=== PATIENT | female | born 1945 | race Caucasian/White ===

== ENCOUNTER 2025-02-05 22:28 | Inpatient (IN) ==
--- NOTE | 2025-02-05 22:48 | ED.PDOC ---
General [facility] ED Provider: Dr. SUSHANT VALENTIN MD Chief Complaint: Shortness of Air Stated Complaint: Patient is a 79-year-old female with past medical history of hypertension, hyperlipidemia, Alzheimer's dementia, pressure ulcers who presents with complaint of shortness of breath and low O2 saturations. As per the residential staff, they found patient to be short of breath and her saturations were in 50s on room air. They called the EMS and the EMS placed her in a reclined position from a flat position and started her on oxygen 6 L and her O2 saturations bumped up to 95% on 6 L after neb treatments before coming to the hospital. Patient is unable to provide any history. Patient as per the EMS has a temperature of 101 F. Patient was seen by the physician at the residential and was started on neb treatments. As per the residential no antibiotics were started. On arrival patient is saturating 96% on 6 L. Patient is alert and in mild respiratory distress. Time Seen by Provider: 02/05/25 22:30 Mode of Arrival: Ambulance Information Source: EMT Exam Limitations: Dementia Primary Care Provider: PREETI ARCE MD Nursing and Triage Documentation Reviewed and Agree: Yes Opioid Naive vs. Tolerant What is Opioid Naive?: *Opioid Naive implies the patient is not already taking opioids or not chronically receiving opioids on a daily basis. *PRN dosing is not "usually" associated with tolerance. *Patients are at higher risk of over-sedation and aspiration. What is Opioid Tolerant?: *Opioid Tolerance implies less than the expected response to an opioid. *Acquired tolerance is defined by the patient taking 60mg of oral morphine daily (or equianalgesic dose of another opioid) for 1 week or more. *Often associated with chronic pain. *May take more than usual dose to achieve desired pain control. Review of Systems Review Of Systems Constitutional: Reports Fever Eyes: Reports No symptoms Ears, Nose, Mouth, Throat: Reports Throat pain Respiratory: Reports Cough and Shortness of Breath Skin: Reports No symptoms Neurological: Reports Cognitive dysfunction All Other Systems: Other (All review of systems could not be obtained secondary to patient condition.) [facility] Medical History CAD (coronary artery disease) I25.10 - Atherosclerotic heart disease of [place] coronary artery without angina pectoris (ICD-10) Muscle weakness (generalized) M62.81 - Muscle weakness (generalized) (ICD-10) Family History (Updated 02/06/25 @ 03:26 by PANDA CHAUHAN) Other No known health problems Female Reproductive History Menstrual Hx Hysterectomy: No Hx Tubal Ligation: No Physical Exam Physical Exam Appearance: Reports Ill-appearing Ill-appearing: Moderate Pain Distress: None Eyes: Reports MOE, EOMI, Conjunctiva clear and Conjunctiva inflammed ENT: Reports Ears normal, Nose normal and Dry mucosa Neck: Supple Respiratory: Reports Breath sounds diminished, Rhonchi, Wheezes, Retractions and Other (Tachypnea, using accessory muscles of respiration.) Cardiovascular: Reports Tachycardia GI/: Reports Soft, Nontender and No masses Musculoskeletal: Reports Normal strength, ROM intact and No edema Skin: Reports Warm and Normal color Neurological: Reports Reflexes intact, Alert, Disoriented and Alert to verbal Critical Care Note Critical Care Note Total Critical Care Time (mins): 45 Course Course 02/06/25 05:05 02/06/25 05:05 Orders, Labs, Meds: Lab Review 02/05/25 02/05/25 02/05/25 02:00 22:40 22:47 WBC 13.68 H RBC 4.25 Hgb 12.2 Hct 41.2 MCV 96.9 MCH 28.7 MCHC 29.6 L RDW Coeff of [place] 12.3 Plt Count 304 Immature Gran % (Auto) 2.2 Neut % (Auto) 81.7 H Lymph % (Auto) 9.4 L [place] % (Auto) 6.3 Eos % (Auto) 0.1 Baso % (Auto) 0.3 Neut # (Auto) 11.2 H Lymph # (Auto) 1.3 [place] # (Auto) 0.9 Eos # (Auto) 0.0 Baso # (Auto) 0.0 Immature Gran # (Auto) 0.3 ESR 96 H PT 10.3 INR 0.99 Puncture Site Rr Base Excess 13.4 H O2 Saturation 96.1 ABG pH 7.54 H* ABG pCO2 42.0 ABG pO2 72.0 L ABG HCO3 35.9 H ABG Total CO2 37.2 H Pablo Test Pos Hemoglobin 1.2 Oxyhemoglobin 93.2 L Carboxyhemoglobin 2.7 H Total Hemoglobin 13.9 O2 Delivery Device Nc Oxygen Liter Flow 6.00 Sodium 145.4 H Potassium 4.36 Chloride 107.4 H Carbon Dioxide 35.5 H Anion Gap 6.86 BUN 29.5 H Creatinine 0.56 L Estimated GFR (MDRD) 105.00 BUN/Creatinine Ratio 52.67 Glucose 155.1 H Lactic Acid 1.22 Calcium 10.08 Magnesium 2.10 Total Bilirubin 0.81 AST 53.8 H ALT 44.3 H Alkaline Phosphatase 92.1 Troponin I 0.045 NT-Pro-B Natriuret Pep 966 H Total Protein 6.71 Albumin 3.41 L Globulin 3.30 Albumin/Globulin Ratio 1.03 Procalcitonin 0.14 H Urine Color Yellow Urine Clarity Clear Urine pH 5.5 Ur Specific [place] 1.025 Urine Protein 2+ H Urine Glucose (UA) Negative Urine Ketones Trace H Urine Blood Trace-intact H Urine Nitrite Positive H Urine Bilirubin Negative Urine Urobilinogen 0.2 Ur Leukocyte Esterase Negative Urine Microscopic RBC 0-2 Urine Microscopic WBC 2-5 Ur Squamous Epith Cells 0-2 Urine Bacteria 1+ Urine Mucus 1+ Urine Yeast Trace Adenovirus (PCR) B. pertussis DNA (PCR) B.parapertussis DNA PCR C. pneumoniae DNA (PCR) Coronavirus OC43 (PCR) Coronavirus HKU1 (PCR) Coronavirus 229E (PCR) Coronavirus NL63 (PCR) Human Metapneumovir PCR Influenza A (H1) PCR Influ A (H1N1/09) PCR Influenza A (H3) PCR Influenza Type A (PCR) Influenza B (RT-PCR) M. pneumoniae (PCR) Parainfluenza 1 (PCR) Parainfluenza 2 (PCR) Parainfluenza 3 (PCR) Parainfluenza 4 (PCR) RSV (PCR) Entero/Rhino (PCR) SARS-CoV-2 (PCR) 02/05/25 22:50 WBC RBC Hgb Hct MCV MCH MCHC RDW Coeff of [place] Plt Count Immature Gran % (Auto) Neut % (Auto) Lymph % (Auto) [place] % (Auto) Eos % (Auto) Baso % (Auto) Neut # (Auto) Lymph # (Auto) [place] # (Auto) Eos # (Auto) Baso # (Auto) Immature Gran # (Auto) ESR PT INR Puncture Site Base Excess O2 Saturation ABG pH ABG pCO2 ABG pO2 ABG HCO3 ABG Total CO2 Pablo Test Hemoglobin Oxyhemoglobin Carboxyhemoglobin Total Hemoglobin O2 Delivery Device Oxygen Liter Flow Sodium Potassium Chloride Carbon Dioxide Anion Gap BUN Creatinine Estimated GFR (MDRD) BUN/Creatinine Ratio Glucose Lactic Acid Calcium Magnesium Total Bilirubin AST ALT Alkaline Phosphatase Troponin I NT-Pro-B Natriuret Pep Total Protein Albumin Globulin Albumin/Globulin Ratio Procalcitonin Urine Color Urine Clarity Urine pH Ur Specific [place] Urine Protein Urine Glucose (UA) Urine Ketones Urine Blood Urine Nitrite Urine Bilirubin Urine Urobilinogen Ur Leukocyte Esterase Urine Microscopic RBC Urine Microscopic WBC Ur Squamous Epith Cells Urine Bacteria Urine Mucus Urine Yeast Adenovirus (PCR) Not detected B. pertussis DNA (PCR) Not detected B.parapertussis DNA PCR Not detected C. pneumoniae DNA (PCR) Not detected Coronavirus OC43 (PCR) Not detected Coronavirus HKU1 (PCR) Not detected Coronavirus 229E (PCR) Not detected Coronavirus NL63 (PCR) Not detected Human Metapneumovir PCR Not detected Influenza A (H1) PCR Not detected Influ A (H1N1/09) PCR Not detected Influenza A (H3) PCR Not detected Influenza Type A (PCR) Not detected Influenza B (RT-PCR) Not detected M. pneumoniae (PCR) Not detected Parainfluenza 1 (PCR) Not detected Parainfluenza 2 (PCR) Not detected Parainfluenza 3 (PCR) Not detected Parainfluenza 4 (PCR) Not detected RSV (PCR) Not detected Entero/Rhino (PCR) Detected H SARS-CoV-2 (PCR) Not detected Orders Category Date Time Status ADMIT PATIENT INPATIENT .TO [facility] (MONITORED BED) ADMISSION 02/05/25 23:34 Active ABG DRAW REQUEST Stat CARDIO 02/05/25 22:42 Completed ACTIVITY TID CARE 02/05/25 23:34 Active INTAKE & OUTPUT Q8HR CARE 02/05/25 23:34 Active TELEMETRY MONITORING TELE CARE 02/05/25 23:34 Active VITAL SIGNS Q8HR CARE 02/05/25 23:34 Active REGULAR DIET DIETARY 02/06/25 Breakfast Ordered ED APPLY O2 .ONCE EMERGENCY 02/05/25 23:26 Active ED CAR FERRY CAPTAIN APPLIED .ONCE EMERGENCY 02/05/25 23:26 Active ED IV/MEDIPORT/POWERPORT .ONCE EMERGENCY 02/05/25 23:26 Active ED VITAL SIGNS .ONCE EMERGENCY 02/05/25 23:26 Active ABG COOX Stat LAB 02/05/25 22:40 Completed BLOOD CULTURE (ED ONLY) Stat LAB 02/05/25 22:55 Received C-REACTIVE PROTEIN Stat LAB 02/05/25 22:47 Received CBC W/ AUTO DIFF DAILY@0600 LAB 02/06/25 05:05 Completed CBC W/ AUTO DIFF DAILY@0600 LAB 02/07/25 06:00 Ordered CBC W/ AUTO DIFF Stat LAB 02/05/25 22:47 Completed CMP [COMPREHENSIVE METABOLIC PANEL] Stat LAB 02/05/25 22:47 Completed COMPREHENSIVE METABOLIC PANEL DAILY@0600 LAB 02/06/25 05:05 Completed COMPREHENSIVE METABOLIC PANEL DAILY@0600 LAB 02/07/25 06:00 Ordered ESR Stat LAB 02/05/25 22:47 Completed LACTIC ACID Stat LAB 02/05/25 22:47 Completed MAGNESIUM Stat LAB 02/05/25 22:47 Completed PROBNP ED [NT-PROBNP(ED)] Stat LAB 02/05/25 22:47 Completed PROCALCITONIN DAILY@0600 LAB 02/06/25 05:05 Completed PROCALCITONIN Stat LAB 02/05/25 22:47 Completed PT WITH INR DAILY@0600 LAB 02/06/25 05:05 Completed PT WITH INR DAILY@0600 LAB 02/07/25 06:00 Ordered PT WITH INR Stat LAB 02/05/25 22:47 Completed RESPIRATORY PANEL 2.1 (PCR) Stat LAB 02/05/25 22:50 Completed TROPONIN I Stat LAB 02/05/25 22:47 Completed UA [URINALYSIS C & S IF INDICATED] Stat LAB 02/05/25 02:00 Completed Acetaminophen Meds 02/05/25 23:26 Discontinued 1,000 mg in 100 ml IV ONCE Piperacillin Sodium/Tazobactam [Zosyn 4.5 gm] 4.5 gm Meds 02/06/25 00:00 Discontinued 0.9 % Sodium Chloride [Sodium Chloride 100Ml] 100 ml IV Q6HR Piperacillin Sodium/Tazobactam [Zosyn 4.5 gm] 4.5 gm Meds 02/06/25 06:00 Active 0.9 % Sodium Chloride [Sodium Chloride 100Ml] 100 ml IV Q6HR Sodium Chloride 0.9% [Sodium Chloride] 1,000 ml Meds 02/05/25 23:26 Discontinued IV BOLUS CHEST, 1V AP ONLY Stat RADS 02/05/25 22:42 Completed Medications Generic Name Dose Route Start Last Admin Trade Name Freq PRN Reason Stop Dose Admin Piperacillin Sod/Tazobactam 100 mls @ 200 mls/hr 02/06/25 06:00 02/06/25 05:41 Sod 4.5 gm/ Sodium Chloride IV 02/09/25 05:59 200 mls/hr Q6HR EDWAR Administration Discontinued Medications Generic Name Dose Route Start Last Admin Trade Name Ephraim PRN Reason Stop Dose Admin Acetaminophen 1,000 mg in 100 mls @ 400 mls/hr 02/05/25 23:26 02/05/25 23:40 Acetaminophen IV 02/05/25 23:40 400 mls/hr ONCE ONE Administration Sodium Chloride 1,000 mls @ 1,000 mls/hr 02/05/25 23:26 02/06/25 00:39 Sodium Chloride IV 02/06/25 00:25 Infused BOLUS ONE Infusion Piperacillin Sod/Tazobactam 100 mls @ 200 mls/hr 02/06/25 00:00 02/05/25 23:59 Sod 4.5 gm/ Sodium Chloride IV 02/09/25 00:00 200 mls/hr Q6HR EDWAR Administration Vital Signs: Temp Pulse Resp BP Pulse Ox 02/05/25 23:16 101.2 F H 02/05/25 22:28 100.1 F 133 H 34 H 130/78 95 ER course: Patient is a 79-year-old female who presented from the residential with hypoxemia and dyspnea. On arrival patient was administered DuoNebs and her 6 L of oxygen was continued. Differential diagnosis include but not limited to flu, COVID, RSV, aspiration, pneumothorax, PE, pleural effusion, malignancy, sinusitis, GERD, CHF exacerbation, COPD exacerbation, asthma exacerbation. Chest x-ray shows patient has right-sided infiltrates. Blood cultures were sent. Patient was started on Zosyn. Discussed with SAMUEL Hare with the hospitalist group and the patient was admitted to Dr. Marquez. 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
[2025-02-05 22:53] LABS: ABG O2 HGB 93.2 % (95-100); ABG PCO2 42.0 mmHg (35-45); ABG PO2 72.0 mmHg (85-100); BEecf 13.4 (-2.0-3.0); HCO3 35.9 (21-28); TCO2 37.2 (19-24)
[2025-02-05 22:55] LABS: ABG PH 7.54 (7.35-7.45)
[2025-02-05 23:01] LABS: BORDETELLA PARAPERTUSSIS (PCR) NOT DETECTED (NOT DETECT); BORDETELLA PERTUSSIS (PCR) NOT DETECTED (NOT DETECT); CHLAMYDIA PNEUMONIAE (PCR) NOT DETECTED (NOT DETECT); CORONAVIRUS 229E (PCR) NOT DETECTED (NOT DETECT); CORONAVIRUS HKU1 (PCR) NOT DETECTED (NOT DETECT); CORONAVIRUS NL63 (PCR) NOT DETECTED (NOT DETECT); CORONAVIRUS OC43 (PCR) NOT DETECTED (NOT DETECT); HUMAN METAPNEUMOVIRUS (PCR) NOT DETECTED (NOT DETECT); INFLUENZA A H1 (PCR) NOT DETECTED (NOT DETECT); INFLUENZA A H1-2009 (PCR) NOT DETECTED (NOT DETECT); INFLUENZA A H3 (PCR) NOT DETECTED (NOT DETECT); INFLUENZA B (PCR) NOT DETECTED (NOT DETECT); MYCOPLASMA PNEUMONIAE (PCR) NOT DETECTED (NOT DETECT); PARAINFLUENZA VIRUS 1 (PCR) NOT DETECTED (NOT DETECT); PARAINFLUENZA VIRUS 2 (PCR) NOT DETECTED (NOT DETECT); PARAINFLUENZA VIRUS 3 (PCR) NOT DETECTED (NOT DETECT); PARAINFLUENZA VIRUS 4 (PCR) NOT DETECTED (NOT DETECT); RESPIRATORY SYNCYTIAL V (PCR) NOT DETECTED (NOT DETECT); SARS_COV_2 (PCR) NOT DETECTED (NOT DETECT)
[2025-02-05 23:06] LABS: IMMATURE GRANULOCYTE # (AUTO) 0.3 (0.0-1.0); IMMATURE GRANULOCYTE % (AUTO) 2.2 % (0.0-5.0); RDW COEFFICIENT OF VARIATION 12.3 % (11.6-14.8)
--- NOTE | 2025-02-05 23:08 | DI ---
EXAM: FRONTAL VIEW OF THE CHEST. HISTORY: Shortness of breath. COMPARISON: None. FINDINGS: Aortic calcifications. Normal heart size. Groundglass opacities in the right mid to lower lung. Small right pleural effusion. No visible pneumothorax. Right shoulder reverse total arthroplasty hardware. Osseous demineralization. IMPRESSION: Infiltrates in the right lung concerning for pneumonia. Small right pleural effusion.
[2025-02-05 23:17] LABS: CREATININE 0.56 mg/dL (0.60-1.30)
[2025-02-05] MEDS ORDERED: ZOSYN 3.375 GM 3.375 GM in SODIUM CHLORIDE 100ML 100 ML IV ONE (23:20)
[2025-02-05] MEDS: SODIUM CHLORIDE 1,000 ML IV ONE (23:39)
[2025-02-05] MEDS: ACETAMINOPHEN 1,000 MG/100 ML BAG IV ONE (23:40)
[2025-02-05 23:42] LABS: INR 0.99 SI (0.0-3.9)
[2025-02-05] MEDS: ZOSYN 4.5 GM 4.5 GM in SODIUM CHLORIDE 100ML 100 ML IV SCH (23:59)
[2025-02-06 00:21] LABS: ERYTHROCYTE SEDIMENTATION RATE 96 mm/hr (0-20)
[2025-02-06 00:54] LABS: ADENOVIRUS (PCR) NOT DETECTED (NOT DETECT); HUMAN RHINOVIRUS/ENTEROV (PCR) DETECTED (NOT DETECT)
[2025-02-06 02:05] LABS: GLUCOSE, URINE (UA) Negative (NEGATIVE); LEUKOCYTE ESTERASE ,URINE Negative (NEGATIVE); URINE, BLOOD Trace-intact (NEGATIVE)
[2025-02-06 02:15] LABS: SQUAMOUS EPITHELIAL CELL,UR 0-2 (0-5); URINE RBC, MICROSCOPIC 0-2 (0-2); YEAST,URINE TRACE (NOT PRESENT)
[2025-02-06 03:20] VITALS: BMI 18.6
[2025-02-06 05:39] LABS: IMMATURE GRANULOCYTE # (AUTO) 0.2 (0.0-1.0); IMMATURE GRANULOCYTE % (AUTO) 1.6 % (0.0-5.0); RDW COEFFICIENT OF VARIATION 12.1 % (11.6-14.8)
[2025-02-06] MEDS: ZOSYN 4.5 GM 4.5 GM in SODIUM CHLORIDE 100ML 100 ML IV SCH (05:41)
[2025-02-06 05:51] LABS: INR 1.03 SI (0.0-3.9)
[2025-02-06 06:00] LABS: CREATININE 0.66 mg/dL (0.60-1.30)
[2025-02-06] MEDS ORDERED: DUONEB NEB PRN (08:27)
[2025-02-06] MEDS ORDERED: ZOFRAN SDV IVP PRN (08:33)
[2025-02-06] MEDS ORDERED: LOVENOX SUBCUT SCH (09:00)
[2025-02-06] MEDS: ROCEPHIN 1 GM/50 ML D5W 1 GM/50 ML BAG IV SCH (09:34)
[2025-02-06] MEDS: DOXY-100 100 MG in SODIUM CHLORIDE 100ML 100 ML IV SCH (09:34)
[2025-02-06] MEDS: SOLU-MEDROL 40 MG IVP SCH (09:34)
[2025-02-06] MEDS ORDERED: ATIVAN IVP ONE (10:40)
[2025-02-06] MEDS: MAGNESIUM SULF 2 G/50 ML BAG 2 GM/50 ML PIGGYBACK IV STA (10:41)
[2025-02-06 11:07] LABS: ABG O2 HGB 92.5 % (95-100); ABG PCO2 59.0 mmHg (35-45); ABG PH 7.42 (7.35-7.45); ABG PO2 65.0 mmHg (85-100); BEecf 13.8 (-2.0-3.0); FI02 50.0 %; HCO3 38.3 (21-28); TCO2 40.1 (19-24)
--- NOTE | 2025-02-06 12:40 | CT ---
EXAMINATION: HEAD CT WITHOUT CONTRAST HISTORY: Altered mental status, abnormal breathing. TECHNIQUE: Noncontrast CT of the brain was performed with images acquired from skull base to vertex. 2-D coronal and sagittal reformatted images were obtained from the axial source images. Contrast Dose: None. CT Dose Reduction Techniques Performed: Yes. COMPARISON: None. FINDINGS: Topogram demonstrates no significant abnormality. Intraparenchymal hemorrhage: None. Parenchyma: Normal aguilar-white differentiation. No mass effect or midline shift. Cerebral atrophy and periventricular deep white matter hypodensities. Extra-axial spaces and basal cisterns: Normal. Ventricles: Normal size and morphology for age. Paranasal sinuses and mastoid air cells: Hypoplastic frontal sinuses. Mucoperiosteal thickening in the ethmoid sinuses bilaterally and right maxillary sinus. Minimal dependent air fluid level on the left maxillary sinus. Mastoid air cells are clear. Orbits: Normal visualized portions. Sella/Skull Base: Normal. Other: Scalp and visualized soft tissues are normal. Calvarium is normal. IMPRESSION: 1. No acute intracranial process. 2. Similar atrophy and deep white matter changes typical of chronic microvessel disease. 3. Bilateral ethmoid and maxillary sinusitis. All CT scans are performed using dose optimization techniques as appropriate to the performed exam and include at least one of the following: Automated exposure control, adjustment of the mA and/or kV according to size, and the use of iterative reconstruction technique.
[2025-02-06] MEDS: DUONEB NEB SCH (15:38)
--- NOTE | 2025-02-06 16:44 | PCM ---
Date of Service Date Seen by Provider: 02/06/25 Time Seen by Provider: 08:30 Admit Day/Time Admission Date: 02/05/25 Admission Time: 23:34 Reason for Admission Chief Complaint: FEVER, LOW O2 Hospital Provider Hospital Provider: MARSHAL ALLEN PA-C, [facility] [place] Primary Care Physician Primary Care Physician: PREETI ARCE MD History of Present Illness History of Present Illness: Patient is a 79-year-old [place] [facility] the [facility] with past medical history of dementia, hypertension, hyperlipidemia, agitation on Depakote, COPD who presents to the ER with low oxygen saturations in the 70s and shortness of breath. In the ER she was found to have pneumonia on chest x-ray and tested positive for rhinovirus. She was placed on 6 L which improved her oxygen saturation. Admitted to [facility]. This morning patient had a very abnormal breathing pattern, was holding her breath and then laboring to breathe. She was also noted to be extending her left leg during these breathing episodes. She is continue to require more oxygen, up to 10 L at this point. She has dementia and is unable to answer questions appropriately. Unsure of baseline. She continues to curl up into the position despite repositioning frequently. ABG and CT head ordered without any acute findings. Discussed with daughter who is POA that patient's breathing has worsened and oxygen requirement has gone up. Discussed concerns with her clinically. Will give her at least another 24 hours with current treatment plan to see if she improves. However daughter is agreeable that if she were to become very uncomfortable, difficult to keep saturations up etc. we will focus on comfort measures at that point. Patient's sister later presented during the day and frequently visits with patient at the prison. She states that she does often extend her left leg in this manner as she likes to "walk it up the wall" that is normally on the right side of her bed. Case Discussed With Case Discussed With: Patient's case was discussed with the ER Physicians, Dr. Senior. [facility] Medical History CAD (coronary artery disease) I25.10 - Atherosclerotic heart disease of [place] coronary artery without angina pectoris (ICD-10) Muscle weakness (generalized) M62.81 - Muscle weakness (generalized) (ICD-10) Family History Other No known health problems Allergies Allergies Allergy/AdvReac Type Severity Reaction Status Date / Time Benzodiazepines Allergy Unknown Unknown Verified 02/05/25 23:05 ciprofloxacin Allergy Unknown Unknown Verified 02/05/25 23:05 Current Medications Home Medications Acetaminophen (Acetaminophen 325 Mg Tablet) 650 mg PO Q4H PRN PRN Reason: Mild Pain Albuterol/Ipratropium (Ipratropium/Albuterol Vial.Neb) 3 ml NEB RTQ4H [facility] Last Admin: 02/06/25 17:10 Dose: 3 ml Enoxaparin Sodium (Enoxaparin Sodium 40 Mg/0.4 Ml Syr) 40 mg SUBCUT DAILY EDWAR CEFTRIAXONE/D5W 1 GM PREMIX (Rocephin 1 Gm/50 Ml D5w) 1 gm in 50 mls @ 100 mls/hr IV DAILY EDWAR Stop: 02/09/25 08:59 Last Admin: 02/06/25 09:34 Dose: 100 mls/hr Doxycycline Hyclate 100 mg/ (Sodium Chloride) 100 mls @ 50 mls/hr IV Q12HR EDWAR Stop: 02/09/25 08:59 Last Admin: 02/06/25 09:34 Dose: 50 mls/hr Methylprednisolone Sodium Succinate (Methylprednisolone Sod Succ/Pf 40 Mg/Ml Vial) 40 mg IVP Q8HR [facility] Last Admin: 02/06/25 14:52 Dose: 40 mg Ondansetron HCl (Ondansetron Hcl/Pf 4 Mg/2 Ml Sdv) 4 mg IVP Q6H PRN PRN Reason: Nausea / Vomiting albuterol sulfate 90 mcg/actuation breath activated powder inhaler 2 inh inhalation Q4-6H PRN shortness of breath 02/05/25 [History Confirmed 02/05/25] aspirin 81 mg capsule 81 mg PO DAILY 02/05/25 [History Confirmed 02/06/25] cyanocobalamin (vitamin B-12) 1,000 mcg capsule 1,000 mcg PO DAILY 02/05/25 [History Confirmed 02/06/25] divalproex 125 mg capsule,delayed release sprinkle 125 mg PO 3XD 02/05/25 [History Confirmed 02/06/25] duloxetine 30 mg capsule,delayed release sprinkle (Drizalma Sprinkle) 60 mg PO ONCE 02/05/25 [History Confirmed 02/06/25] gabapentin 300 mg capsule 300 mg PO BID 02/05/25 [History Confirmed 02/06/25] losartan 50 mg tablet 50 mg PO 2XD 02/05/25 [History Confirmed 02/06/25] mirtazapine 15 mg tablet 15 mg PO BEDTIME 02/05/25 [History Confirmed 02/06/25] olanzapine 5 mg disintegrating tablet 5 mg PO BID 02/05/25 [History Confirmed 02/06/25] trazodone 50 mg tablet 50 mg PO BEDTIME 02/05/25 [History Confirmed 02/06/25] acetaminophen 650 mg tablet,extended release (8HR Muscle Aches-Pain) 650 mg PO Q8H PRN fever or pain 02/06/25 [History Confirmed 02/06/25] cetirizine 10 mg capsule (All Day Allergy (cetirizine)) 10 mg PO DAILY PRN allergy symptoms 02/06/25 [History Confirmed 02/06/25] diclofenac sodium 1 % topical gel (Aspercreme Arthritis Pain) 4 g topical QID 02/06/25 [History Confirmed 02/06/25] Opioid Naive vs. Tolerant Does Patient Take Opioids?: No Is Patient Opioid Naive?: Yes What is Opioid Naive?: *Opioid Naive implies the patient is not already taking opioids or not chronically receiving opioids on a daily basis. *PRN dosing is not "usually" associated with tolerance. *Patients are at higher risk of over-sedation and aspiration. Is Patient Opioid Tolerant?: No What is Opioid Tolerant?: *Opioid Tolerance implies less than the expected response to an opioid. *Acquired tolerance is defined by the patient taking 60mg of oral morphine daily (or equianalgesic dose of another opioid) for 1 week or more. *Often associated with chronic pain. *May take more than usual dose to achieve desired pain control. Review of Systems Constitutional: Reports Fever, Fatigue and Weakness Head: Reports Normocephalic and Atraumatic Cardiovascular: Denies Chest pain Respiratory: Reports Cough and Shortness of air Physical examination Most Recent Vital Signs: Most Recent Vital Signs Temperature 96.7 F L 02/06/25 05:51 Temperature Source Tympanic 02/06/25 05:51 Temperature Source Rectal 02/05/25 23:16 Pulse Rate 79 11/24/25 05:51 Respiratory Rate 16 02/06/25 05:51 Blood Pressure 113/90 02/06/25 05:51 Blood Pressure Mean 97 02/06/25 05:51 Blood Pressure Left Arm 114/72 02/06/25 01:22 Blood Pressure Location Right Arm 02/06/25 05:51 Blood Pressure Position Supine 02/06/25 05:51 O2 Sat by Pulse Oximetry 93 L 02/06/25 09:55 Oxygen Delivery Method Venturi Mask 02/06/25 14:00 Oxygen Flow Rate 10 02/06/25 14:00 Fraction of Inspired Oxygen (FIO2) 50 02/06/25 14:00 Height 5 ft 6 in 02/06/25 01:22 Weight 52.5 kg 02/06/25 01:22 Telemetry Type Remote Telemetry 02/06/25 13:00 Telemetry Monitoring Continues 02/06/25 13:00 Telemetry Heart Rate 104 H 02/06/25 13:00 Telemetry SPO2 90 L 02/06/25 13:00 EKG UT Interval 0.12 02/06/25 13:00 EKG QRS Interval 0.06 02/06/25 13:[address] 02/06/25 13:00 Appearance: Positive Ill-Appearing, Thin and Other (moderately distressed, confused ) Skin: Positive [place], Warm and Good Turgor HEENT: Positive Normocephalic and Atraumatic Neck: Positive Supple and Midline Trachea Chest/Lungs: Positive Other (+diminished bilaterally, rhonchi noted, mild wheezing, significant amount of snot noted, +labored breathing ) Heart: Positive Tachycardia GI/: Positive Soft, Nontender, Bowel Sounds Normal and No Distention Extremities: Negative Edema Neurological: Positive Other (unable to fully assess, generally weak, moves all extremities but left leg continues to be in extension ) Psychiatric: Negative Oriented x4, Appropriate Mood or Appropriate Affect Labs This Visit Labs This Visit: Labs This Visit 02/05/25 02/05/25 02/05/25 02:00 22:40 22:47 WBC 13.68 H RBC 4.25 Hgb 12.2 Hct 41.2 MCV 96.9 MCH 28.7 MCHC 29.6 L RDW Coeff of [place] 12.3 Plt Count 304 Immature Gran % (Auto) 2.2 Neut % (Auto) 81.7 H Lymph % (Auto) 9.4 L [place] % (Auto) 6.3 Eos % (Auto) 0.1 Baso % (Auto) 0.3 Neut # (Auto) 11.2 H Lymph # (Auto) 1.3 [place] # (Auto) 0.9 Eos # (Auto) 0.0 Baso # (Auto) 0.0 Immature Gran # (Auto) 0.3 ESR 96 H PT 10.3 INR 0.99 Puncture Site Rr Base Excess 13.4 H O2 Saturation 96.1 ABG pH 7.54 H* ABG pCO2 42.0 ABG pO2 72.0 L ABG HCO3 35.9 H ABG Total CO2 37.2 H Pablo Test Pos Hemoglobin 1.2 Oxyhemoglobin 93.2 L Carboxyhemoglobin 2.7 H Total Hemoglobin 13.9 O2 Delivery Device Nc Oxygen Liter Flow 6.00 FiO2 % Sodium 145.4 H Potassium 4.36 Chloride 107.4 H Carbon Dioxide 35.5 H Anion Gap 6.86 BUN 29.5 H Creatinine 0.56 L Estimated GFR (MDRD) 105.00 BUN/Creatinine Ratio 52.67 Glucose 155.1 H Lactic Acid 1.22 Calcium 10.08 Magnesium 2.10 Total Bilirubin 0.81 AST 53.8 H ALT 44.3 H Alkaline Phosphatase 92.1 Troponin I 0.045 NT-Pro-B Natriuret Pep 966 H Total Protein 6.71 Albumin 3.41 L Globulin 3.30 Albumin/Globulin Ratio 1.03 Procalcitonin 0.14 H Urine Color Yellow Urine Clarity Clear Urine pH 5.5 Ur Specific [place] 1.025 Urine Protein 2+ H Urine Glucose (UA) Negative Urine Ketones Trace H Urine Blood Trace-intact H Urine Nitrite Positive H Urine Bilirubin Negative Urine Urobilinogen 0.2 Ur Leukocyte Esterase Negative Urine Microscopic RBC 0-2 Urine Microscopic WBC 2-5 Ur Squamous Epith Cells 0-2 Urine Bacteria 1+ Urine Mucus 1+ Urine Yeast Trace Adenovirus (PCR) B. pertussis DNA (PCR) B.parapertussis DNA PCR C. pneumoniae DNA (PCR) Coronavirus OC43 (PCR) Coronavirus HKU1 (PCR) Coronavirus 229E (PCR) Coronavirus NL63 (PCR) Human Metapneumovir PCR Influenza A (H1) PCR Influ A (H1N1/09) PCR Influenza A (H3) PCR Influenza Type A (PCR) Influenza B (RT-PCR) M. pneumoniae (PCR) Parainfluenza 1 (PCR) Parainfluenza 2 (PCR) Parainfluenza 3 (PCR) Parainfluenza 4 (PCR) RSV (PCR) Entero/Rhino (PCR) SARS-CoV-2 (PCR) 02/05/25 02/06/25 02/06/25 22:50 05:05 10:56 WBC 10.67 H RBC 3.61 L Hgb 10.4 L Hct 35.6 L MCV 98.6 MCH 28.8 MCHC 29.2 L RDW Coeff of [place] 12.1 Plt Count 262 Immature Gran % (Auto) 1.6 Neut % (Auto) 77.8 H Lymph % (Auto) 11.8 [place] % (Auto) 8.5 Eos % (Auto) 0.0 Baso % (Auto) 0.3 Neut # (Auto) 8.3 H Lymph # (Auto) 1.3 [place] # (Auto) 0.9 Eos # (Auto) 0.0 Baso # (Auto) 0.0 Immature Gran # (Auto) 0.2 ESR PT 10.7 INR 1.03 Puncture Site Rbrach Base Excess 13.8 H O2 Saturation 92.8 L ABG pH 7.42 ABG pCO2 59.0 H ABG pO2 65.0 L ABG HCO3 38.3 H ABG Total CO2 40.1 H Pablo Test Hemoglobin 1.1 Oxyhemoglobin 92.5 L Carboxyhemoglobin 2.4 H Total Hemoglobin 11.7 O2 Delivery Device Venti mask Oxygen Liter Flow 10.00 FiO2 % 50.0 Sodium 146.0 H Potassium 3.91 Chloride 109.5 H Carbon Dioxide 33.9 H Anion Gap 6.51 BUN 28.1 H Creatinine 0.66 Estimated GFR (MDRD) 87.00 BUN/Creatinine Ratio 42.57 Glucose 136.0 H Lactic Acid Calcium 9.02 Magnesium Total Bilirubin 0.43 AST 32.1 ALT 33.3 Alkaline Phosphatase 71.3 Troponin I NT-Pro-B Natriuret Pep Total Protein 5.56 L Albumin 2.82 L Globulin 2.74 Albumin/Globulin Ratio 1.02 Procalcitonin 0.10 H Urine Color Urine Clarity Urine pH Ur Specific [place] Urine Protein Urine Glucose (UA) Urine Ketones Urine Blood Urine Nitrite Urine Bilirubin Urine Urobilinogen Ur Leukocyte Esterase Urine Microscopic RBC Urine Microscopic WBC Ur Squamous Epith Cells Urine Bacteria Urine Mucus Urine Yeast Adenovirus (PCR) Not detected B. pertussis DNA (PCR) Not detected B.parapertussis DNA PCR Not detected C. pneumoniae DNA (PCR) Not detected Coronavirus OC43 (PCR) Not detected Coronavirus HKU1 (PCR) Not detected Coronavirus 229E (PCR) Not detected Coronavirus NL63 (PCR) Not detected Human Metapneumovir PCR Not detected Influenza A (H1) PCR Not detected Influ A (H1N1/09) PCR Not detected Influenza A (H3) PCR Not detected Influenza Type A (PCR) Not detected Influenza B (RT-PCR) Not detected M. pneumoniae (PCR) Not detected Parainfluenza 1 (PCR) Not detected Parainfluenza 2 (PCR) Not detected Parainfluenza 3 (PCR) Not detected Parainfluenza 4 (PCR) Not detected RSV (PCR) Not detected Entero/Rhino (PCR) Detected H SARS-CoV-2 (PCR) Not detected 02/06/25 11:04 WBC RBC Hgb Hct MCV MCH MCHC RDW Coeff of [place] Plt Count Immature Gran % (Auto) Neut % (Auto) Lymph % (Auto) [place] % (Auto) Eos % (Auto) Baso % (Auto) Neut # (Auto) Lymph # (Auto) [place] # (Auto) Eos # (Auto) Baso # (Auto) Immature Gran # (Auto) ESR PT INR Puncture Site Base Excess O2 Saturation ABG pH ABG pCO2 ABG pO2 ABG HCO3 ABG Total CO2 [place] Test Hemoglobin Oxyhemoglobin Carboxyhemoglobin Total Hemoglobin O2 Delivery Device Oxygen Liter Flow FiO2 % Sodium Potassium Chloride Carbon Dioxide Anion Gap BUN Creatinine Estimated GFR (MDRD) BUN/Creatinine Ratio Glucose Lactic Acid 0.78 D Calcium Magnesium Total Bilirubin AST ALT Alkaline Phosphatase Troponin I NT-Pro-B Natriuret Pep Total Protein Albumin Globulin Albumin/Globulin Ratio Procalcitonin Urine Color Urine Clarity Urine pH Ur Specific [place] Urine Protein Urine Glucose (UA) Urine Ketones Urine Blood Urine Nitrite Urine Bilirubin Urine Urobilinogen Ur Leukocyte Esterase Urine Microscopic RBC Urine Microscopic WBC Ur Squamous Epith Cells Urine Bacteria Urine Mucus Urine Yeast Adenovirus (PCR) B. pertussis DNA (PCR) B.parapertussis DNA PCR C. pneumoniae DNA (PCR) Coronavirus OC43 (PCR) Coronavirus HKU1 (PCR) Coronavirus 229E (PCR) Coronavirus NL63 (PCR) Human Metapneumovir PCR Influenza A (H1) PCR Influ A (H1N1/09) PCR Influenza A (H3) PCR Influenza Type A (PCR) Influenza B (RT-PCR) M. pneumoniae (PCR) Parainfluenza 1 (PCR) Parainfluenza 2 (PCR) Parainfluenza 3 (PCR) Parainfluenza 4 (PCR) RSV (PCR) Entero/Rhino (PCR) SARS-CoV-2 (PCR) Imaging Imaging: EXAMINATION: HEAD CT WITHOUT CONTRAST HISTORY: Altered mental status, abnormal breathing. TECHNIQUE: Noncontrast CT of the brain was performed with images acquired from skull base to vertex. 2-D coronal and sagittal reformatted images were obtained from the axial source images. Contrast Dose: None. CT Dose Reduction Techniques Performed: Yes. COMPARISON: None. FINDINGS: Topogram demonstrates no significant abnormality. Intraparenchymal hemorrhage: None. Parenchyma: Normal aguilar-white differentiation. No mass effect or midline shift. Cerebral atrophy and periventricular deep white matter hypodensities. Extra-axial spaces and basal cisterns: Normal. Ventricles: Normal size and morphology for age. Paranasal sinuses and mastoid air cells: Hypoplastic frontal sinuses. Mucoperiosteal thickening in the ethmoid sinuses bilaterally and right maxillary sinus. Minimal dependent air fluid level on the left maxillary sinus. Mastoid air cells are clear. Orbits: Normal visualized portions. Sella/Skull Base: Normal. Other: Scalp and visualized soft tissues are normal. Calvarium is normal. IMPRESSION: 1. No acute intracranial process. 2. Similar atrophy and deep white matter changes typical of chronic microvessel disease. 3. Bilateral ethmoid and maxillary sinusitis. EXAM: FRONTAL VIEW OF THE CHEST. HISTORY: Shortness of breath. COMPARISON: None. FINDINGS: Aortic calcifications. Normal heart size. Groundglass opacities in the right mid to lower lung. Small right pleural effusion. No visible pneumothorax. Right shoulder reverse total arthroplasty hardware. Osseous demineralization. IMPRESSION: Infiltrates in the right lung concerning for pneumonia. Small right pleural effusion. Review Statement Review Statement: I have independently reviewed and interpreted the labs/EKGs/imaging that were ordered by the ER provider. I have reviewed all outside records that are available currently in our EMR including imaging/notes/labs from previous visits. Plan Plan: 1. Acute hypoxic respiratory failure in setting of CAP due to rhinovirus - abx/steroids/breathing treatments, O2, isolation precautions 2. CAP due to rhinovirus - Plan as above 3. Abnormal breathing pattern and abnormal posturing - CT head neg, ABG overall unremarkable except mild CO2 retention. 4. Acute metabolic encephalopathy in setting of CAP - NPO for now, accuchecks q6hrs while npo, ST consult tomorrow morning, will start home meds when safe to swallow 5. Hypertension - Will restart when able 6. Dementia with agitation - Will restart meds when able DVT Prophylaxis: Lovenox Time Spent: Greater than 80 minutes spent with patient, 50% of the time spent with this patient was devoted to counseling and coordination of care. [facility] minutes spent discussing advance care planning. DNR Disposition: Will require >2 midnights Admit to: Inpatient Discussed Plan of Care with Dr. Fidelia Marquez. Discussed with daughter/POA concern regarding patient's condition, O2 requirements, labored breathing etc. Plan to give patient another 24 hours to see if she shows any improvement. If she were to become very uncomfortable, unable to keep O2 saturations up, etc, will consider switching to comfort focused care. Reevaluation this evening, patient does appear to be more comfortable and less labored. Medications Medication Orders: Medications Ordered Category Date Time Status Acetaminophen [Tylenol] Meds 02/06/25 08:33 Active 650 mg PO Q4H PRN Ceftriaxone/D5w 1 gm Premix [Rocephin 1 gm/50 ml D5w] Meds 02/06/25 09:00 A ctive 1 gm in 50 ml IV DAILY Doxycycline Hyclate Inj [Doxy-100] 100 mg Meds 02/06/25 09:00 Active 0.9 % Sodium Chloride [Sodium Chloride 100Ml] 100 ml IV Q12HR Ipratropium/Albuterol Neb [Duoneb] Meds 02/06/25 14:00 Active 3 ml NEB RTQ4H Methylprednisolone Sod Succ/Pf [Solu-Medrol 40 mg] Meds 02/06/25 08:30 Active 40 mg IVP Q8HR Ondansetron HCl/Pf [Zofran Sdv] Meds 02/06/25 08:33 Active 4 mg IVP Q6H PRN
[2025-02-06] MEDS ORDERED: TESSALON PERLES PO PRN (23:24)
[2025-02-06] MEDS ORDERED: ROBITUSSIN DM SYRUP PO PRN (23:24)
[2025-02-06] MEDS: REMERON PO SCH (23:41)
[2025-02-06] MEDS: ZYPREXA PO SCH (23:41)
[2025-02-07 05:26] LABS: IMMATURE GRANULOCYTE # (AUTO) 0.4 (0.0-1.0); IMMATURE GRANULOCYTE % (AUTO) 3.8 % (0.0-5.0); RDW COEFFICIENT OF VARIATION 11.9 % (11.6-14.8)
[2025-02-07 05:39] LABS: CREATININE 0.6 mg/dL (0.60-1.30)
[2025-02-07] MEDS: LOVENOX SUBCUT SCH (10:33)
[2025-02-07] MEDS: COZAAR PO SCH (10:33)
[2025-02-07] MEDS: NEURONTIN PO SCH (10:34)
[2025-02-07] MEDS: DIVALPROEX 125 MG PO SCH (12:02)
[2025-02-07] MEDS: SODIUM CHLORIDE 1,000 ML IV SCH (12:11)
[2025-02-07] MEDS: TYLENOL PO PRN (12:25)
--- NOTE | 2025-02-07 15:48 | PCM.PROG ---
Date/Time Seen Date Seen by Provider: 02/07/25 Time Seen by Provider: 08:40 Provider Provider: [facility] Chief Complaint Chief Complaint: FEVER, LOW O2 Subjective Subjective: Patient is clinically improved today. More interactive and alert. Oxygen requirement is down. Objective Appearance: Positive No Apparent Distress and Other (+alert, garbled speech, confused, ) Chest/Lungs: Positive Rhonci Heart: Positive RRR GI/: Positive Soft, Nontender, Bowel Sounds Normal and No Distention Neurological: Positive Alert, Disorinted and Other (+moves all extremities, does not follow commands ) Vital Signs Vital Signs: Vital Signs: Last 24 Hours 02/06/25 18:14 02/06/25 19:00 02/06/25 19:10 Temperature 96 F L Temperature Source Temporal Artery Scan Pulse Rate 94 Respiratory Rate 20 Blood Pressure 186/100 H Blood Pressure Mean 128 Blood Pressure Location Blood Pressure Position O2 Sat by Pulse Oximetry 98 Oxygen Delivery Method Venturi Mask Venturi Mask Oxygen Flow Rate 10 10 Telemetry Type Remote Telemetry Telemetry Monitoring Continues Telemetry Heart Rate 91 Telemetry SPO2 92 L EKG IA Interval 0.15 EKG QRS Interval 0.12 H Telemetry Strip Reading SR WITH BBB 02/06/25 20:00 02/06/25 21:47 02/07/25 01:00 Temperature 96.5 F L Temperature Source Tympanic Pulse Rate 103 H Respiratory Rate 14 Blood Pressure 159/93 H Blood Pressure Mean 115 Blood Pressure Location Right Radial Artery Blood Pressure Position Supine O2 Sat by Pulse Oximetry 90 L 94 L Oxygen Delivery Method Venturi Mask Venturi Mask Oxygen Flow Rate 10 10 Telemetry Type Remote Telemetry Telemetry Monitoring Continues Telemetry Heart Rate 86 Telemetry SPO2 90 L EKG IA Interval 0.12 EKG QRS Interval 0.09 Telemetry Strip Reading SR 02/07/25 04:57 02/07/25 06:00 02/07/25 07:00 Temperature 98.6 F Temperature Source Temporal Artery Scan Pulse Rate 92 Respiratory Rate 20 Blood Pressure 135/99 H Blood Pressure Mean 111 Blood Pressure Location Left Arm Blood Pressure Position Supine O2 Sat by Pulse Oximetry 96 94 L Oxygen Delivery Method Venturi Mask Venturi Mask Oxygen Flow Rate 10 10 Telemetry Type Remote Telemetry Telemetry Monitoring Continues Telemetry Heart Rate 83 Telemetry SPO2 94 EKG IA Interval 0.14 EKG QRS Interval 0.12 H Telemetry Strip Reading SR with BBB 02/07/25 07:40 02/07/25 10:00 02/07/25 14:00 Temperature Temperature Source Pulse Rate Respiratory Rate Blood Pressure Blood Pressure Mean Blood Pressure Location Blood Pressure Position O2 Sat by Pulse Oximetry 94 L 94 L Oxygen Delivery Method Venturi Mask High Flow Canula High Flow [place]ula Oxygen Flow Rate 10 3 3 Telemetry Type Telemetry Monitoring Telemetry Heart Rate Telemetry SPO2 EKG IA Interval EKG QRS Interval Telemetry Strip Reading Lab Results Lab Results: Lab Results: Last 24 Hours 02/07/25 04:43 WBC 10.23 H RBC 3.78 L Hgb 10.9 L Hct 37.1 MCV 98.1 MCH 28.8 MCHC 29.4 L RDW Coeff of [place] 11.9 Plt Count 329 Immature Gran % (Auto) 3.8 Neut % (Auto) 85.4 H Lymph % (Auto) 6.2 L [place] % (Auto) 4.3 Eos % (Auto) 0.0 Baso % (Auto) 0.3 Neut # (Auto) 8.7 H Lymph # (Auto) 0.6 [place] # (Auto) 0.4 Eos # (Auto) 0.0 Baso # (Auto) 0.0 Immature Gran # (Auto) 0.4 Sodium 150.3 H Potassium 3.81 Chloride 111.5 H Carbon Dioxide 35.8 H Anion Gap 6.81 BUN 32.2 H Creatinine 0.60 Estimated GFR (MDRD) 97.00 BUN/Creatinine Ratio 53.66 Glucose 136.6 H Calcium 10.05 Total Bilirubin 0.35 AST 35.6 ALT 39.2 H Alkaline Phosphatase 86.5 Total Protein 6.27 L Albumin 3.24 L Globulin 3.03 Albumin/Globulin Ratio 1.06 Additional Comments Additional Comments: I have independently reviewed and interpreted the labs/EKGs/imaging ordered during this hospital stay. I have reviewed outside records that are available in our EMR that pertain to medical stay including imaging/notes/labs from previous visits. Active Medications Active Medications: Medications Generic Name Dose Route Start Last Admin Trade Name Freq PRN Reason Stop Dose Admin Acetaminophen 650 mg 02/06/25 08:33 02/07/25 12:25 Acetaminophen 325 Mg Tablet PO 650 mg Q4H PRN Administration Mild Pain Albuterol/Ipratropium 3 ml 02/06/25 14:00 02/07/25 14:29 Ipratropium/Albuterol Vial.Neb NEB 3 ml RTQ4H EDWAR Administration Enoxaparin Sodium 40 mg 02/07/25 09:00 02/07/25 10:33 Enoxaparin Sodium 40 Mg/0.4 Ml Syr SUBCUT 40 mg DAILY EDWAR Administration Gabapentin 300 mg 02/07/25 09:00 02/07/25 10:34 Gabapentin 300 Mg Capsule PO 300 mg BID EDWAR Administration CEFTRIAXONE/D5W 1 GM PREMIX 1 gm in 50 mls @ 100 mls/hr 02/06/25 09:00 02/07/25 10:32 Rocephin 1 Gm/50 Ml D5w IV 02/09/25 08:59 100 mls/hr DAILY EDWAR Administration Doxycycline Hyclate 100 mg/ 100 mls @ 50 mls/hr 02/06/25 09:00 02/07/25 10:32 Sodium Chloride IV 02/09/25 08:59 50 mls/hr Q12HR EDWAR Administration Sodium Chloride 1,000 mls @ 75 mls/hr 02/07/25 08:30 02/07/25 12:11 Sodium Chloride IV 75 mls/hr .[id number] EDWAR Administration Losartan Potassium 50 mg 02/07/25 09:00 02/07/25 10:33 Losartan Potassium 25 Mg Tablet PO 50 mg 2XD EDWAR Administration Methylprednisolone Sodium Succinate 40 mg 02/06/25 08:30 02/07/25 13:56 Methylprednisolone Sod Succ/Pf 40 Mg/Ml Vial IVP 40 mg Q8HR EDWAR Administration Mirtazapine 15 mg 02/06/25 23:05 02/06/25 23:41 Mirtazapine 15 Mg Tablet PO 15 mg BEDTIME EDWAR Administration Non-Formulary Medication 81 mg 02/07/25 09:00 02/07/25 12:03 Aspirin PO 81 mg DAILY EDWAR Administration Non-Formulary Medication 125 mg 02/07/25 09:00 02/07/25 12:02 Divalproex PO 125 mg 3XD EDWAR Administration Non-Formulary Medication 60 mg 02/07/25 09:00 02/07/25 12:02 Duloxetine [Drizalma Sprinkle] PO 60 mg DAILY EDWAR Administration Olanzapine 5 mg 02/07/25 00:00 02/07/25 10:32 Olanzapine 2.5 Mg Tablet PO 5 mg BID EDWAR Administration Ondansetron HCl 4 mg 02/06/25 08:33 Ondansetron Hcl/Pf 4 Mg/2 Ml Sdv IVP Q6H PRN Nausea / Vomiting Sodium Chloride 1 syr 02/06/25 21:00 02/07/25 13:57 0.9% Sodium Chloride 10 Ml Disp.Syrin IVF 1 syr Q8HR EDWAR Administration Trazodone HCl 50 mg 02/07/25 21:00 Trazodone Hcl 50 Mg Tablet PO BEDTIME EDWAR Plan Plan: 1. Acute hypoxic respiratory failure in setting of CAP due to rhinovirus - improved, cont abx/steroids/breathing treatments, O2, isolation precautions 2. CAP due to rhinovirus - Plan as above 3. Abnormal breathing pattern and abnormal posturing - Improved, CT head neg, ABG overall unremarkable except mild CO2 retention. 4. Acute metabolic encephalopathy in setting of CAP - Improved, advance diet per ST, restart meds 5. Hypertension - cont home meds 6. 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 Reached out to daughter/POA with no answer. Review Statement Review Statement: I have personally discussed and reviewed the patient's visit/currently labs/imaging/decision making with Dr. Marquez, my supervising attending. Greater that 50 minutes spent with patient, 50% of the time spent with this patient was devoted to counseling and coordination of care.
[2025-02-07] MEDS: DESYREL PO SCH (21:47)
[2025-02-08 05:09] LABS: IMMATURE GRANULOCYTE # (AUTO) 0.6 (0.0-1.0); IMMATURE GRANULOCYTE % (AUTO) 6.8 % (0.0-5.0); RDW COEFFICIENT OF VARIATION 11.9 % (11.6-14.8)
[2025-02-08 05:20] LABS: CREATININE 0.74 mg/dL (0.60-1.30)
--- NOTE | 2025-02-08 11:53 | PCM.PROG ---
Date/Time Seen Date Seen by Provider: 02/08/25 Time Seen by Provider: 09:00 Provider Provider: [facility] Chief Complaint Chief Complaint: FEVER, LOW O2 Subjective Subjective: Patients appears to be improving. Unable to obtain history due to mental status, although she is more alert and active today than previously. She is laying upright in the bed and responds to questions with garbled speech. Breathing is regular and she seems to be in no distress. Objective Appearance: Positive No Apparent Distress and Other (+alert, garbled speech, confused) Chest/Lungs: Positive Clear to Auscultation Bilaterally and Rhonci Heart: Positive RRR GI/: Positive Soft, Nontender, Bowel Sounds Normal and No Distention Neurological: Positive Alert, Disorinted and Other (+moves all extremities, does not follow commands ) Vital Signs Vital Signs: Vital Signs: Last 24 Hours 02/07/25 13:00 02/07/25 14:00 02/07/25 14:00 Temperature 98.7 F Temperature Source Temporal Artery Scan Pulse Rate 92 Respiratory Rate 18 Blood Pressure 154/71 H Blood Pressure Mean 98 Blood Pressure Location Left Arm Blood Pressure Position Supine O2 Sat by Pulse Oximetry 94 L 94 L Oxygen Delivery Method High Flow [place] Nasal Cannula Oxygen Flow Rate 3 Fraction of Inspired Oxygen (FIO2) 3 Telemetry Type Remote Telemetry Telemetry Monitoring Continues Telemetry Heart Rate 122 H Telemetry SPO2 EKG LA Interval 0.12 EKG QRS Interval 0.14 H Telemetry Strip Reading SR BBB 02/07/25 18:04 02/07/25 19:00 02/07/25 19:50 Temperature 98.6 F Temperature Source Temporal Artery Scan Pulse Rate 94 Respiratory Rate 16 Blood Pressure 117/81 Blood Pressure Mean 93 Blood Pressure Location Left Arm Blood Pressure Position O2 Sat by Pulse Oximetry 95 94 L Oxygen Delivery Method Nasal Cannula Nasal Cannula Oxygen Flow Rate 3 3 Fraction of Inspired Oxygen (FIO2) Telemetry Type Remote Telemetry Telemetry Monitoring Continues Telemetry Heart Rate 112 H Telemetry SPO2 93 EKG LA Interval 0.18 EKG QRS Interval 0.10 Telemetry Strip Reading SR 02/07/25 20:00 02/07/25 21:57 02/08/25 01:00 Temperature 98.5 F Temperature Source Temporal Artery Scan Pulse Rate 98 Respiratory Rate 24 H Blood Pressure 142/85 H Blood Pressure Mean 104 Blood Pressure Location Left Arm Blood Pressure Position Supine O2 Sat by Pulse Oximetry 94 L Oxygen Delivery Method Nasal Cannula Nasal Cannula Oxygen Flow Rate 3 3 Fraction of Inspired Oxygen (FIO2) Telemetry Type Remote Telemetry Telemetry Monitoring Continues Telemetry Heart Rate 82 Telemetry SPO2 96 EKG LA Interval 0.15 EKG QRS Interval 0.08 Telemetry Strip Reading SR 02/08/25 05:09 02/08/25 05:28 02/08/25 07:00 Temperature 98.5 F Temperature Source Tympanic Pulse Rate 92 Respiratory Rate 14 Blood Pressure 150/86 H Blood Pressure Mean 107 Blood Pressure Location Left Arm Blood Pressure Position O2 Sat by Pulse Oximetry 94 L 95 Oxygen Delivery Method Nasal Cannula Nasal Cannula Oxygen Flow Rate 3 3 Fraction of Inspired Oxygen (FIO2) Telemetry Type Remote Telemetry Telemetry Monitoring Continues Telemetry Heart Rate 96 Telemetry SPO2 90 L EKG LA Interval 0.14 EKG QRS Interval 0.12 H Telemetry Strip Reading SR with BBB 02/08/25 10:00 Temperature Temperature Source Pulse Rate Respiratory Rate Blood Pressure Blood Pressure Mean Blood Pressure Location Blood Pressure Position O2 Sat by Pulse Oximetry 94 L Oxygen Delivery Method High Flow [place] Oxygen Flow Rate 2 Fraction of Inspired Oxygen (FIO2) Telemetry Type Telemetry Monitoring Telemetry Heart Rate Telemetry SPO2 EKG LA Interval EKG QRS Interval Telemetry Strip Reading Lab Results Lab Results: Lab Results: Last 24 Hours 02/08/25 05:00 WBC 9.14 RBC 3.60 L Hgb 10.4 L Hct 35.1 L MCV 97.5 MCH 28.9 MCHC 29.6 L RDW Coeff of [place] 11.9 Plt Count 305 Immature Gran % (Auto) 6.8 H Neut % (Auto) 81.6 H Lymph % (Auto) 7.4 L [place] % (Auto) 4.0 Eos % (Auto) 0.0 Baso % (Auto) 0.2 Neut # (Auto) 7.5 H Lymph # (Auto) 0.7 [place] # (Auto) 0.4 Eos # (Auto) 0.0 Baso # (Auto) 0.0 Immature Gran # (Auto) 0.6 Sodium 146.5 H Potassium 3.98 Chloride 110.7 H Carbon Dioxide 33.1 H Anion Gap 6.68 BUN 32.0 H Creatinine 0.74 Estimated GFR (MDRD) 76.00 BUN/Creatinine Ratio 43.24 Glucose 140.0 H Calcium 9.75 Total Bilirubin 0.39 AST 49.0 H ALT 37.3 H Alkaline Phosphatase 68.2 Total Protein 5.80 L Albumin 2.93 L Globulin 2.87 Albumin/Globulin Ratio 1.02 Additional Comments Additional Comments: I have independently reviewed and interpreted the labs/EKGs/imaging ordered during this hospital stay. I have reviewed outside records that are available in our EMR that pertain to medical stay including imaging/notes/labs from previous visits. Active Medications Active Medications: Medications Generic Name Dose Route Start Last Admin Trade Name Freq PRN Reason Stop Dose Admin Acetaminophen 650 mg 02/06/25 08:33 02/07/25 12:25 Acetaminophen 325 Mg Tablet PO 650 mg Q4H PRN Administration Mild Pain Albuterol/Ipratropium 3 ml 02/06/25 14:00 02/08/25 09:59 Ipratropium/Albuterol Vial.Neb NEB 3 ml RTQ4H EDWAR Administration Cefuroxime Axetil 200 mg 02/09/25 07:30 Cefpodoxime Proxetil 200 Mg Tablet PO 02/10/25 17:01 [id number] EDWAR Doxycycline Hyclate 100 mg 02/08/25 21:00 Doxycycline Hyclate 100 Mg Capsule PO 02/10/25 21:01 Q12HR EDWAR Enoxaparin Sodium 40 mg 02/07/25 09:00 02/08/25 10:52 Enoxaparin Sodium 40 Mg/0.4 Ml Syr SUBCUT 40 mg DAILY EDWAR Administration Gabapentin 300 mg 02/07/25 09:00 02/08/25 10:55 Gabapentin 300 Mg Capsule PO 300 mg BID EDWAR Administration CEFTRIAXONE/D5W 1 GM PREMIX 1 gm in 50 mls @ 100 mls/hr 02/06/25 09:00 02/08/25 08:37 Rocephin 1 Gm/50 Ml D5w IV 02/09/25 08:59 100 mls/hr DAILY EDWAR Administration Doxycycline Hyclate 100 mg/ 100 mls @ 50 mls/hr 02/06/25 09:00 02/08/25 10:30 Sodium Chloride IV 02/08/25 20:59 50 mls/hr Q12HR EDWAR Administration Sodium Chloride 1,000 mls @ 75 mls/hr 02/07/25 08:30 02/08/25 08:46 Sodium Chloride IV 75 mls/hr .[id number] EDWAR Administration Losartan Potassium 50 mg 02/07/25 09:00 02/08/25 10:55 Losartan Potassium 25 Mg Tablet PO 50 mg 2XD EDWAR Administration Methylprednisolone Sodium Succinate 40 mg 02/06/25 08:30 02/08/25 05:09 Methylprednisolone Sod Succ/Pf 40 Mg/Ml Vial IVP 40 mg Q8HR EDWAR Administration Mirtazapine 15 mg 02/06/25 23:05 02/07/25 21:46 Mirtazapine 15 Mg Tablet PO 15 mg BEDTIME EDWAR Administration Non-Formulary Medication 81 mg 02/07/25 09:00 02/08/25 10:53 Aspirin PO 81 mg DAILY EDWAR Administration Non-Formulary Medication 125 mg 02/07/25 09:00 02/08/25 10:54 Divalproex PO 125 mg 3XD EDWAR Administration Non-Formulary Medication 60 mg 02/07/25 09:00 02/08/25 10:52 Duloxetine [Drizalma Sprinkle] PO 60 mg DAILY EDWAR Administration Olanzapine 5 mg 02/07/25 00:00 02/08/25 10:55 Olanzapine 2.5 Mg Tablet PO 5 mg BID EDWAR Administration Ondansetron HCl 4 mg 02/06/25 08:33 Ondansetron Hcl/Pf 4 Mg/2 Ml Sdv IVP Q6H PRN Nausea / Vomiting Sodium Chloride 1 syr 02/06/25 21:00 02/08/25 05:09 0.9% Sodium Chloride 10 Ml Disp.Syrin IVF 1 syr Q8HR EDWAR Administration Trazodone HCl 50 mg 02/07/25 21:00 02/07/25 21:47 Trazodone Hcl 50 Mg Tablet PO 50 mg BEDTIME EDWAR Administration Plan Plan: 1. Acute hypoxic respiratory failure in setting of CAP due to rhinovirus - improved, cont abx/steroids/breathing treatments, O2, isolation precautions 2. CAP due to rhinovirus - Plan as above 3. Abnormal breathing pattern and abnormal posturing - Improved, CT head neg, ABG overall unremarkable except mild CO2 retention. 4. Acute metabolic encephalopathy in setting of CAP - Improved, advance diet per ST, restart meds 5. Hypertension - cont home meds 6. 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 Reached out to daughter/POA again today with no answer. Review Statement Review Statement: I have personally discussed and reviewed the patient's visit/currently labs/imaging/decision making with Dr. Marquez, my supervising attending. Greater that 50 minutes spent with patient, 50% of the time spent with this patient was devoted to counseling and coordination of care.
[2025-02-08] MEDS: DOXYCYCLINE PO SCH (21:50)
[2025-02-09 05:21] LABS: IMMATURE GRANULOCYTE # (AUTO) 0.7 (0.0-1.0); IMMATURE GRANULOCYTE % (AUTO) 8.4 % (0.0-5.0); RDW COEFFICIENT OF VARIATION 11.7 % (11.6-14.8)
[2025-02-09 05:33] LABS: CREATININE 0.62 mg/dL (0.60-1.30)
[2025-02-09] MEDS: CEFPODOXIME PROXETIL PO SCH (08:24)
--- NOTE | 2025-02-09 09:53 | PCM.PROG ---
Date/Time Seen Date Seen by Provider: 02/09/25 Time Seen by Provider: 08:30 Provider Provider: [facility] Chief Complaint Chief Complaint: FEVER, LOW O2 Subjective Subjective: Patient overall doing better and has been stable. Transitioning to oral abx. Continuing to wean O2. Got a good bath this morning. Objective Appearance: Positive No Apparent Distress and Other (+alert, garbled speech, confused) Chest/Lungs: Positive Clear to Auscultation Bilaterally and Rhonci (much improved ) Heart: Positive RRR GI/: Positive Soft, Nontender, Bowel Sounds Normal and No Distention Neurological: Positive Alert, Disorinted and Other (+moves all extremities, does not follow commands ) Vital Signs Vital Signs: Vital Signs: Last 24 Hours 02/08/25 10:00 02/08/25 14:00 02/08/25 14:00 Temperature 98.8 F Temperature Source Temporal Artery Scan Pulse Rate 103 H Respiratory Rate 16 Blood Pressure 165/81 H Blood Pressure Mean 109 Blood Pressure Location Left Arm Blood Pressure Position O2 Sat by Pulse Oximetry 94 L 94 L 96 Oxygen Delivery Method High Flow [place] Nasal Cannula Room Air Oxygen Flow Rate 2 2 Telemetry Type Telemetry Monitoring Telemetry Heart Rate Telemetry SPO2 EKG HI Interval EKG QRS Interval Telemetry Strip Reading 02/08/25 16:00 02/08/25 19:00 02/08/25 19:05 Temperature Temperature Source Pulse Rate Respiratory Rate Blood Pressure Blood Pressure Mean Blood Pressure Location Blood Pressure Position O2 Sat by Pulse Oximetry 94 L Oxygen Delivery Method Nasal Cannula Oxygen Flow Rate 2 Telemetry Type Remote Telemetry Remote Telemetry Telemetry Monitoring Continues Continues Telemetry Heart Rate 92 87 Telemetry SPO2 93 97 EKG HI Interval 0.13 0.12 EKG QRS Interval 0.12 H 0.09 Telemetry Strip Reading SR with BBB SR 02/08/25 20:00 02/08/25 21:37 02/09/25 01:00 Temperature 97.4 F L Temperature Source Temporal Artery Scan Pulse Rate 76 Respiratory Rate 16 Blood Pressure 139/83 Blood Pressure Mean 101 Blood Pressure Location Right Arm Blood Pressure Position Supine O2 Sat by Pulse Oximetry 94 L Oxygen Delivery Method Nasal Cannula Nasal Cannula Oxygen Flow Rate 2 2 Telemetry Type Remote Telemetry Telemetry Monitoring Continues Telemetry Heart Rate 85 Telemetry SPO2 91 L EKG HI Interval 0.15 EKG QRS Interval 0.12 H Telemetry Strip Reading SR WITH BBB 02/09/25 05:39 02/09/25 05:51 02/09/25 07:00 Temperature 98.1 F Temperature Source Tympanic Pulse Rate 79 Respiratory Rate 16 Blood Pressure 204/96 H Blood Pressure Mean 132 Blood Pressure Location Left Arm Blood Pressure Position Supine O2 Sat by Pulse Oximetry 94 L 93 L Oxygen Delivery Method Nasal Cannula Nasal Cannula Oxygen Flow Rate 2 2 Telemetry Type Remote Telemetry Telemetry Monitoring Continues Telemetry Heart Rate 93 Telemetry SPO2 89 L EKG HI Interval 0.14 EKG QRS Interval 0.11 H Telemetry Strip Reading SR with BBB Lab Results Lab Results: Lab Results: Last 24 Hours 02/09/25 02/06/25 04:53 08:33 WBC 8.08 RBC 3.57 L Hgb 10.7 L Hct 33.7 L MCV 94.4 MCH 30.0 MCHC 31.8 RDW Coeff of [place] 11.7 Plt Count 263 Immature Gran % (Auto) 8.4 H Neut % (Auto) 79.9 H Lymph % (Auto) 7.5 L [place] % (Auto) 4.2 Eos % (Auto) 0.0 Baso % (Auto) 0.0 Neut # (Auto) 6.5 Lymph # (Auto) 0.6 [place] # (Auto) 0.3 L Eos # (Auto) 0.0 Baso # (Auto) 0.0 Immature Gran # (Auto) 0.7 Sodium 142.5 Potassium 4.03 Chloride 109.2 H Carbon Dioxide 29.7 Anion Gap 7.63 BUN 22.4 H Creatinine 0.62 Estimated GFR (MDRD) 93.00 BUN/Creatinine Ratio 36.12 Glucose 127.4 H Calcium 9.63 Total Bilirubin 0.37 AST 49.7 H ALT 48.9 H Alkaline Phosphatase 60.9 Total Protein 5.40 L Albumin 2.79 L Globulin 2.61 Albumin/Globulin Ratio 1.06 Urine Legionella Ag Negative Additional Comments Additional Comments: I have independently reviewed and interpreted the labs/EKGs/imaging ordered during this hospital stay. I have reviewed outside records that are available in our EMR that pertain to medical stay including imaging/notes/labs from previous visits. Active Medications Active Medications: Medications Generic Name Dose Route Start Last Admin Trade Name Freq PRN Reason Stop Dose Admin Acetaminophen 650 mg 02/06/25 08:33 02/07/25 12:25 Acetaminophen 325 Mg Tablet PO 650 mg Q4H PRN Administration Mild Pain Albuterol/Ipratropium 3 ml 02/06/25 14:00 02/09/25 05:12 Ipratropium/Albuterol Vial.Neb NEB 3 ml RTQ4H EDWAR Administration Cefuroxime Axetil 200 mg 02/09/25 07:30 02/09/25 08:24 Cefpodoxime Proxetil 200 Mg Tablet PO 02/10/25 17:01 200 mg BIDWM2 EDWAR Administration Doxycycline Hyclate 100 mg 02/08/25 21:00 02/09/25 08:26 Doxycycline Hyclate 100 Mg Capsule PO 02/10/25 21:01 100 mg Q12HR EDWAR Administration Enoxaparin Sodium 40 mg 02/07/25 09:00 02/09/25 08:27 Enoxaparin Sodium 40 Mg/0.4 Ml Syr SUBCUT 40 mg DAILY EDWAR Administration Gabapentin 300 mg 02/07/25 09:00 02/09/25 08:26 Gabapentin 300 Mg Capsule PO 300 mg BID EDWAR Administration Losartan Potassium 50 mg 02/07/25 09:00 02/09/25 08:26 Losartan Potassium 25 Mg Tablet PO 50 mg 2XD EDWAR Administration Methylprednisolone Sodium Succinate 40 mg 02/06/25 08:30 02/09/25 05:08 Methylprednisolone Sod Succ/Pf 40 Mg/Ml Vial IVP 40 mg Q8HR EDWAR Administration Mirtazapine 15 mg 02/06/25 23:05 02/08/25 21:50 Mirtazapine 15 Mg Tablet PO 15 mg BEDTIME EDWAR Administration Non-Formulary Medication 81 mg 02/07/25 09:00 02/09/25 08:26 Aspirin PO 81 mg DAILY EDWAR Administration Non-Formulary Medication 125 mg 02/07/25 09:00 02/09/25 08:26 Divalproex PO 125 mg 3XD EDWAR Administration Non-Formulary Medication 60 mg 02/07/25 09:00 02/09/25 08:27 Duloxetine [Drizalma Sprinkle] PO 60 mg DAILY EDWAR Administration Olanzapine 5 mg 02/07/25 00:00 02/09/25 08:25 Olanzapine 2.5 Mg Tablet PO 5 mg BID EDWAR Administration Ondansetron HCl 4 mg 02/06/25 08:33 Ondansetron Hcl/Pf 4 Mg/2 Ml Sdv IVP Q6H PRN Nausea / Vomiting Sodium Chloride 1 syr 02/06/25 21:00 02/09/25 05:08 0.9% Sodium Chloride 10 Ml Disp.Syrin IVF 1 syr Q8HR EDWAR Administration Trazodone HCl 50 mg 02/07/25 21:00 02/08/25 21:51 Trazodone Hcl 50 Mg Tablet PO 50 mg BEDTIME EDWAR Administration Plan Plan: 1. Acute hypoxic respiratory failure in setting of CAP due to rhinovirus - improved, cont abx/steroids/breathing treatments, O2, isolation precautions 2. CAP due to rhinovirus - Plan as above 3. Abnormal breathing pattern and abnormal posturing - Improved, CT head neg, ABG overall unremarkable except mild CO2 retention. 4. Acute metabolic encephalopathy in setting of CAP - Improved, advance diet per ST, restarted meds 5. Hypertension - cont home meds 6. Dementia with agitation - cont home meds DVT Prophylaxis: Lovenox Dispo: Reaching patient's baseline, transitioning to oral abx, continue to wean O2, poss dc tomorrow back to NH. Review Statement Review Statement: I have personally discussed and reviewed the patient's visit/currently labs/imaging/decision making with Dr. Marquez, my supervising attending. Greater that 50 minutes spent with patient, 50% of the time spent with this patient was devoted to counseling and coordination of care.
[2025-02-09 15:13] LABS: STEP PNEUMO ORGANISM ID Not indicated. (.); STREP PNEUMO BODY FLUID CULT Not indicated. (.)
[2025-02-09] MEDS: DUONEB NEB SCH (18:02)
[2025-02-10 05:51] LABS: RDW COEFFICIENT OF VARIATION 11.7 % (11.6-14.8)
[2025-02-10 06:09] LABS: CREATININE 0.55 mg/dL (0.60-1.30)
[2025-02-10 06:15] LABS: BAND NEUTROPHILS % (MANUAL) 10.0 % (0.0-5.0); BASOPHILS % (MANUAL) 1.0 % (0.0-1.0); LYMPHOCYTES % (MANUAL) 10.0 % (10.0-50.0); METAMYELOCYTES %(MANUAL) 4.0 % (0.0-2.0); MONOCYTES % (MANUAL) 4.0 % (0.0-10.0); MYELOCYTES % (MANUAL) 4.0 % (0.0-1.0); NEUTROPHILS % (MANUAL) 67.0 % (42.2-75.2)
--- NOTE | 2025-02-10 10:35 | DCSUM ---
Admission Date Admission Date: 02/05/25 Discharge Date Discharge Date: 02/10/25 Admission Diagnosis Admission Diagnosis: 1. Acute hypoxic respiratory failure in setting of CAP due to rhinovirus 2. CAP due to rhinovirus Discharge Diagnosis Discharge Diagnosis: 1. Acute hypoxic respiratory failure in setting of CAP due to rhinovirus and strep pneumo - improved 2. CAP due to rhinovirus and strep pneumo 3. Abnormal breathing pattern and abnormal posturing - much improved 4. Acute metabolic encephalopathy in setting of CAP - resolved 5. Hypertension - cont home meds 6. Dementia with agitation - cont home meds Hospital Provider Hospital Provider: MAR[facility] Physician Primary Care Physician: PREETI ARCE MD Summary of History and Physical Summary of History and Physical: Patient is a 79-year-old female from the [facility] with past medical history of dementia, hypertension, hyperlipidemia, agitation on Depakote, COPD who presents to the ER with low oxygen saturations in the 70s and shortness of breath. In the ER she was found to have pneumonia on chest x-ray and tested positive for rhinovirus. She was placed on 6 L which improved her oxygen saturation. Admitted to [facility]. This morning patient had a very abnormal breathing pattern, was holding her breath and then laboring to breathe. She was also noted to be extending her left leg during these breathing episodes. She is continue to require more oxygen, up to 10 L at this point. She has dementia and is unable to answer questions appropriately. Unsure of baseline. She continues to curl up into the position despite repositioning frequently. ABG and CT head ordered without any acute findings. Discussed with daughter who is POA that patient's breathing has worsened and oxygen requirement has gone up. Discussed concerns with her clinically. Will give her at least another 24 hours with current treatment plan to see if she improves. However daughter is agreeable that if she were to become very uncomfortable, difficult to keep saturations up etc. we will focus on comfort measures at that point. Patient's sister later presented during the day and frequently visits with patient at the prison. She states that she does often extend her left leg in this manner as she likes to "walk it up the wall" that is normally on the right side of her bed. Hospital Course Subjective: Day 1 patient's condition was very guarded. She was requiring up to 10 L of oxygen. She was very lethargic, labored breathing, toxic appearing. Had a long discussion with her daughter/POA about potential to need comfort measures should she not improve with time. However, on 02/07 she was much improved. She was able to be weaned down to 3 L. She was no longer laboring to breathe. She was a little more interactive and was able to start pured diet and take her medications. Since then she has slowly improved and been stable. She has been weaned down to about 1 L of oxygen. She still gets mildly hypoxic when removing it. She has been tolerating a p.o. diet. She has been much more alert, interactive and verbal. She is still very difficult to understand but feel this is her baseline. Will plan to discharge her back to the prison today on remainder of antibiotics and steroids. She was rhinovirus positive and her strep pneumo antigen came back positive as well. She has been covered appropriately for this. Contact precautions per prison. Follow-up with PCP within 3 days for recheck. Reached out to daughter/POA today for update but was unable to reach her. Appearance: Pleasant, No Apparent Distress and Alert HEENT: MMM and Supple CVS: Other (RRR) Abdomen: Soft, Non-Tender and No Distention Respiratory: No Accessory Muscle Use Extremities: No Edema Additional Findings: +alert, interactive, verbalizes a lot but difficult to understand Vital Signs: Most Recent Vital Signs Temperature 97.5 F L 02/10/25 05:08 Temperature Source Temporal Artery Scan 02/10/25 05:08 Temperature Source Rectal 02/05/25 23:16 Pulse Rate 79 02/10/25 05:08 Respiratory Rate 18 02/10/25 05:08 Blood Pressure 172/100 H 02/10/25 05:08 Blood Pressure Mean 124 02/10/25 05:08 Blood Pressure Left Arm 114/72 02/06/25 01:22 Blood Pressure Location Left Arm 02/10/25 05:08 Blood Pressure Position Supine 02/10/25 05:08 O2 Sat by Pulse Oximetry 93 L 02/10/25 05:37 Oxygen Delivery Method Nasal Cannula 02/10/25 05:37 Oxygen Flow Rate 1 02/10/25 05:37 Fraction of Inspired Oxygen (FIO2) 3 02/07/25 14:00 Height 5 ft 6 in 02/06/25 01:22 Weight 52.5 kg 02/06/25 01:22 Telemetry Type Remote Telemetry 02/10/25 07:00 Telemetry Monitoring Continues 02/10/25 07:00 Telemetry Heart Rate 75 02/10/25 07:00 Telemetry SPO2 93 02/10/25 07:00 EKG HI Interval 0.15 02/10/25 07:00 EKG QRS Interval 0.11 H 02/10/25 07:00 Telemetry Strip Reading SR with BBB 02/10/25 07:00 Imaging: EXAM: FRONTAL VIEW OF THE CHEST. HISTORY: Shortness of breath. COMPARISON: None. FINDINGS: Aortic calcifications. Normal heart size. Groundglass opacities in the right mid to lower lung. Small right pleural effusion. No visible pneumothorax. Right shoulder reverse total arthroplasty hardware. Osseous demineralization. IMPRESSION: Infiltrates in the right lung concerning for pneumonia. Small right pleural effusion. EXAMINATION: HEAD CT WITHOUT CONTRAST HISTORY: Altered mental status, abnormal breathing. TECHNIQUE: Noncontrast CT of the brain was performed with images acquired from skull base to vertex. 2-D coronal and sagittal reformatted images were obtained from the axial source images. Contrast Dose: None. CT Dose Reduction Techniques Performed: Yes. COMPARISON: None. FINDINGS: Topogram demonstrates no significant abnormality. Intraparenchymal hemorrhage: None. Parenchyma: Normal aguilar-white differentiation. No mass effect or midline shift. Cerebral atrophy and periventricular deep white matter hypodensities. Extra-axial spaces and basal cisterns: Normal. Ventricles: Normal size and morphology for age. Paranasal sinuses and mastoid air cells: Hypoplastic frontal sinuses. Mucoperiosteal thickening in the ethmoid sinuses bilaterally and right maxillary sinus. Minimal dependent air fluid level on the left maxillary sinus. Mastoid air cells are clear. Orbits: Normal visualized portions. Sella/Skull Base: Normal. Other: Scalp and visualized soft tissues are normal. Calvarium is normal. IMPRESSION: 1. No acute intracranial process. 2. Similar atrophy and deep white matter changes typical of chronic microvessel disease. 3. Bilateral ethmoid and maxillary sinusitis. Lab Results Last 24 Hours: 02/10/25 02/07/25 05:08 06:30 WBC 10.32 H RBC 4.02 L Hgb 11.7 L Hct 37.8 MCV 94.0 MCH 29.1 MCHC 31.0 L RDW Coeff of [place] 11.7 Plt Count 280 Neutrophils % (Manual) 67.0 Band Neutrophils % 10.0 H Lymphocytes % (Manual) 10.0 Monocytes % (Manual) 4.0 Basophils % (Manual) 1.0 Metamyelocytes % 4.0 H Myelocytes % 4.0 H Anisocytosis Not present Sodium 138.7 Potassium 4.01 Chloride 105.0 Carbon Dioxide 30.8 H Anion Gap 6.91 BUN 22.8 H Creatinine 0.55 L Estimated GFR (MDRD) 107.00 BUN/Creatinine Ratio 41.45 Glucose 113.4 H Calcium 9.51 Total Bilirubin 0.42 AST 26.9 ALT 43.5 H Alkaline Phosphatase 56.5 Total Protein 5.41 L Albumin 2.82 L Globulin 2.59 Albumin/Globulin Ratio 1.08 CSF Strep pneumoniae Ag Not indicated. Staphs Organism ID Not indicated. S. pneumoniae Ag Source Urine S. pneumoniae Ag Intrp Positive H Ref Test Please Note Comment Discharge Instructions Discharge Planning: Discharge Planning > [address] Fidelia Marquez. Discharge Medications: Medications at Discharge (Home Meds & RX) albuterol sulfate 90 mcg/actuation breath activated powder inhaler 2 inh inhalation Q4-6H PRN shortness of breath 02/05/25 aspirin 81 mg capsule 81 mg PO DAILY 02/05/25 cyanocobalamin (vitamin B-12) 1,000 mcg capsule 1,000 mcg PO DAILY 02/05/25 divalproex 125 mg capsule,delayed release sprinkle 125 mg PO 3XD 02/05/25 duloxetine 30 mg capsule,delayed release sprinkle (Drizalma Sprinkle) 60 mg PO ONCE 02/05/25 gabapentin 300 mg capsule 300 mg PO BID 02/05/25 losartan 50 mg tablet 50 mg PO 2XD 02/05/25 mirtazapine 15 mg tablet 15 mg PO BEDTIME 02/05/25 olanzapine 5 mg disintegrating tablet 5 mg PO BID 02/05/25 trazodone 50 mg tablet 50 mg PO BEDTIME 02/05/25 acetaminophen 650 mg tablet,extended release (8HR Muscle Aches-Pain) 650 mg PO Q8H PRN fever or pain 02/06/25 cetirizine 10 mg capsule (All Day Allergy (cetirizine)) 10 mg PO DAILY PRN allergy symptoms 02/06/25 diclofenac sodium 1 % topical gel (Aspercreme Arthritis Pain) 4 g topical QID 02/06/25 cefpodoxime 200 mg tablet 200 mg PO BIDWM2 2 days #4 tabs 02/10/25 doxycycline hyclate 100 mg capsule 100 mg PO Q12HR 2 days #4 caps 02/10/25 ipratropium 0.5 mg-albuterol 3 mg (2.5 mg base)/3 mL nebulization soln 3 ml NEB RTQ6H PRN SOB #90 mL 02/10/25 prednisone 20 mg tablet 20 mg PO BID 2 days #4 tabs 02/10/25 Discharge Plan Discharge Discharge Orders: Discharge Patient (ONCE); Ordered 02/10/25 Ordered By: MARSHAL ALLEN Activity Restrictions/Additional Instructions: DISCHARGE BACK TO SNF ([facility]) DX: PNEUMONIA, HYPOXIC RESPIRATORY FAILURE, UTI DIET: PER ST, ADVANCE BACK TO [place]ELINE AT [place] TOLERATED ACTIVITY: TOLERATED FINISH Antibiotics AND STEROIDS DUONEBS PRN 1-2L 02 PRN, MAY BE ABLE TO WEAN IN NEXT FEW DAYS SEE PCP WITHIN 3 DAYS PATIENT TESTED POSITIVE FOR RHINOVIRUS AND STREP PNEUMO HAS BEEN ON DROPLET PRECAUTIONS SINCE ADMISSION ON 02/06/2025 Patient Disposition: TRANSFER SNF Prescriptions: New doxycycline hyclate 100 mg Capsule 100 mg PO Q12HR 2 Days Qty: 4 0RF ipratropium-albuterol 0.5 mg-3 mg(2.5 mg base)/3 mL Solution For Nebulization 3 ml NEB RTQ6H PRN (Reason: SOB) Qty: 90 0RF cefpodoxime 200 mg Tablet 200 mg PO BIDWM2 2 Days Qty: 4 0RF prednisone 20 mg tablet 20 mg PO BID 2 Days Qty: 4 0RF Continued losartan 50 mg tablet 50 mg PO 2XD trazodone 50 mg tablet 50 mg PO BEDTIME gabapentin 300 mg capsule 300 mg PO BID mirtazapine 15 mg tablet 15 mg PO BEDTIME divalproex 125 mg capsule, delayed rel sprinkle 125 mg PO 3XD olanzapine 5 mg tablet,disintegrating 5 mg PO BID Drizalma Sprinkle 30 mg capsule, delayed rel sprinkle 60 mg PO ONCE albuterol sulfate 90 mcg/actuation aerosol powdr breath activated 2 inh inhalation Q4-6H PRN (Reason: shortness of breath) aspirin 81 mg capsule 81 mg PO DAILY cyanocobalamin (vitamin B-12) 1,000 mcg capsule 1,000 mcg PO DAILY acetaminophen [8HR Muscle Aches-Pain] 650 mg tablet extended release 650 mg PO Q8H PRN (Reason: fever or pain) diclofenac sodium [Aspercreme Arthritis Pain] 1 % gel 4 g topical QID Rx Instructions: apply to single knee, ankle, foot; for foot includes sole/toes/top of foot All Day Allergy (cetirizine) 10 mg capsule 10 mg PO DAILY PRN (Reason: allergy symptoms) Did you review [place] [employer] for ALL controlled substances?: Not Applicable Discussed opioids are addictive and Narcan is available by prescription or from pharmacy.: No Condition: Stable
[2025-02-10 11:48] VITALS: BP 132/83; PULSE 83; RESP 14; TEMP 98.1
[2025-02-11 19:10] LABS: STREP PNEUMO AG Positive (Negative)
== END 2025-02-10 15:20 | DRG 189 ==
LOC: ED 22:28 → MEDSURG B 02-06 01:00
PROVIDERS: ADMIT Hospitalist; ATTEND Physician Assistant